=== PATIENT | male | born 1990 | race Two or more races ===

== ENCOUNTER 2017-01-21 11:15 | Emergency (ER) | payer OTHER ==
[2017-01-21 12:13] VITALS: BP 152/94
--- NOTE | 2017-01-21 14:02 | UC ---
HPI Febrile Illness - HPI Summary HPI Summary: PATIENT PRESENTS TO WITH CC FEVER AND COUGH SINCE LAST EVENING. PATIENT DENIES MUSCLE ACHES, SANDOVAL, NECK PAIN, SORE THROAT, EAR PAIN, CHEST PAIN OR PRESSURE, OR SOB. TODAY WHILE WORKING HE STATES HE MUST HAVE PASSED OUT AND HIS CO-WORKERS HAD CALLED THE AMBULANCE AND BROUGHT HIM HERE. HE STATES TODAY HE TOOK TESSALON WHICH WAS PRESCRIBED TO HIM AT ANOTHER TIME AND DID NOT EAT THIS MORNING. HE HAS NEVER PASSED OUT BEFORE, BUT STATES THE PASSING OUT IS LIKELY D/T NOT EATING. PATIENT STATES HE HAS HAD SOME CHILLS AND SWEATS THIS MORNING. PATIENT IS OTHERWISE HEALTHY AND TAKES NO MEDICATIONS. - History of Current Complaint Chief Complaint: UCGeneralIllness Time Seen by Provider: 01/21/17 12:58 Hx Obtained From: Patient Onset/Duration: Started Hours Ago Timing: Constant Initial Severity: Mild Current Severity: Mild Pain Intensity: 0 Pain Scale Used: 0-10 Numeric Aggravating Factors: Nothing Alleviating Factors: Nothing Associated Signs and Symptoms: Cough, Diaphoresis, Night Sweats, Weakness - Risk Factors Pseudomonas Risk Factors: Negative Serious Bacterial Infection Risk Factors: Negative - Allergy/Home Medications Allergies/Adverse Reactions: Allergies Allergy/AdvReac Type Severity Reaction Status Date / Time No Known Allergies Allergy Verified 01/21/17 12:05 Home Medications: Home Medications Benzonatate CAP* [Tessalon 100 MG CAP*] 100 mg PO TID PRN 01/21/17 [History Confirmed 01/21/17] GuaiFENesin DM* [Robitussin DM*] 5 ml PO Q6H PRN 01/21/17 [History Confirmed 04/03] Ibuprofen TAB* [Advil TAB*] 400 mg PO Q6H PRN 01/21/17 [History Confirmed ] PMH/Surg Hx/FS Hx/Imm Hx Previously Healthy: Yes - Immunization History Hx Pertussis Vaccination: Yes Immunizations Up to Date: Yes Infectious Disease History: No Infectious Disease History: Denies: Traveled Outside the [place] in Last 30 Days - Social History Occupation: Employed Full-time Lives: Alone Alcohol Use: Occasionally Hx Substance Use: No Substance Use Type: Reports: None Hx Tobacco Use: No Smoking Status (MU): Never Smoked Tobacco Review of Systems Constitutional: Fever Eyes: Negative ENT: Negative Respiratory: Negative Cardiovascular: Negative Gastrointestinal: Negative Motor: Negative Neurovascular: Negative Neurological: Headache Psychological: Negative All Other Systems Reviewed And Are Negative: Yes Physical Exam Triage Information Reviewed: Yes Appearance: Well-Appearing, Well-Nourished Vital Signs: Initial Vital Signs Temp 102.2 F 01/21/17 12:07 Pulse 113 01/21/17 12:07 Resp 18 01/21/17 12:07 BP 152/94 01/21/17 12:07 Pulse Ox 99 01/21/17 12:07 Vital Signs Reviewed: Yes Eye Exam: Normal Eyes: Positive: Conjunctiva Clear ENT: Positive: Normal ENT inspection, Pharynx normal, TMs normal Dental Exam: Normal Neck exam: Normal Neck: Positive: Supple, Nontender, No Lymphadenopathy Respiratory Exam: Normal Respiratory: Positive: Chest non-tender, Lungs clear Cardiovascular Exam: Normal Cardiovascular: Positive: RRR Abdominal Exam: Normal Musculoskeletal Exam: Normal Musculoskeletal: Positive: Strength Intact, ROM Intact Neurological Exam: Normal Psychological Exam: Normal Psychological: Positive: Normal Response To Family, Age Appropriate Behavior Skin Exam: Normal Course/Dx - Course Course Of Treatment: PATIENT PRESENTS TO S/P SYNCOPAL EPISODE AT WORK WITH FEVER. HE STATES HE HAS NOT EATEN TODAY AND ALSO TOOK TESSLON FOR MILD COUGH THIS AM. HE HAD A FEVER LAST EVENING AND TOOK TYLENOL WITH RELIEF. WILL ENCOURAGE REST AND FLUIDS THIS SEEMS TO BE A VIRAL ILLNESS. PATIENT AGREES AND NOTE GIVEN FOR WORK TO RETURN ON WEDNESDAY. RETURN PRECAUTIONS GIVEN. - Febrile Illness Differential Diagnoses: Fever of Unknown Origin, Pneumonia, Sepsis - Diagnoses Clinic Provider Diagnoses: VIRAL SYNDROME Discharge - Discharge Plan Condition: Stable Disposition: HOME Patient Education Materials: Viral Syndrome (ED) Forms: *Work Release Referrals: Melanie Bowman PA [Primary Care Provider] - Additional Instructions: FOLLOW UP WITH PCP ON WEDNESDAY SCHEDULED TYLENOL FOR TEMPS OVER 100.5 REST FLUIDS SUPPLEMENT WITH GATORADE FOR EVERY GLASS OF WATER SOUPS, BREADS, RICE WILL BE EASY ON THE STOMACH RETURN TO WORK ON WEDNESDAY IF SYMPTOMS BECOME WORSE, COME BACK TO .
== END 2017-01-21 13:41 | disposition home or self-care (01) ==
LOC: UCCORT 11:15
DX: B34.9 Viral infection, unspecified (principal)
CPT/HCPCS: 87502; 99211; G0463